=== PATIENT | female | born 1945 | race Caucasian/White ===

== ENCOUNTER 2023-05-25 22:53 | Inpatient (IN) | payer OTHER ==
[~2023-05-25] VITALS: Ht 160 cm; Wt 77.6 kg
[2023-05-25 23:44] VITALS: BP 146/84
[2023-05-26] VITALS (7 sets, daily range): BP systolic 130–153; BP diastolic 66–96
[2023-05-26] MEDS ORDERED: ONDANSETRON HCL 4 MG/2 ML VIAL IV PRN (01:15)
[2023-05-26] MEDS ORDERED: PANTOPRAZOLE 40 MG/10 ML VIAL INJ IV ONE (01:15)
[2023-05-26 01:55] LABS: Basophils # (auto) 0 10 ^3/uL (0-0.2); Basophils % (auto) 0.2 % (0.0-2.0); Eosinophils # (auto) 0 10 ^3/uL (0-0.8); Eosinophils % (auto) 0.1 % (0.0-7.0); Hematocrit 35.9 % (36.0-46.0); Hemoglobin 11.9 g/dL (12.2-16.2); Lymphocytes # (auto) 1.5 10 ^3/uL (0.4-5.4); Lymphocytes % (auto) 12.1 % (10.0-50.0); Mean Corpuscular Hemoglobin 31.6 pg (28.0-32.0); Mean Corpuscular Hgb Conc. 33.1 g/dL (32.0-36.0); Mean Corpuscular Volume 95.7 fL (80.0-100.0); Monocytes # (auto) 2.1 10 ^3/uL (0-1.3); Monocytes % (auto) 17.2 % (0.0-12.0); Neutrophils # (auto) 8.7 10 ^3/uL (1.6-8.6); Neutrophils % (auto) 70.4 % (37.0-80.0); Red Blood Cells 3.75 10^6/uL (4.0-5.20); Red Cell Distribution Width 13.1 % (11.8-14.3); White Blood Cell 12.3 10^3/uL (4.4-10.8)
[2023-05-26 02:10] LABS: INR 1.13 (0.9-1.15)
[2023-05-26 02:15] LABS: Albumin 2.8 g/dL (3.4-5.0); BUN/Creatinine Ratio 7.3 (10.0-20.0); Calcium 8.5 mg/dL (8.5-10.1); Potassium 4.3 mmol/L (3.5-5.1)
[2023-05-26 02:18] LABS: Total Protein 6.5 g/dL (6.4-8.2)
[2023-05-26] MEDS ORDERED: PANT40TA2 PO (08:23)
[2023-05-26] MEDS ORDERED: ONDA-155 PO (08:23)
[2023-05-26] MEDS ORDERED: ESCI1TAB37 PO (08:35)
[2023-05-26] MEDS ORDERED: ALPR1TAB7 PO (08:35)
[2023-05-26] MEDS ORDERED: BENZ100C97 PO (08:35)
[2023-05-26] MEDS ORDERED: GLIP10TA9 PO (08:35)
[2023-05-26] MEDS ORDERED: ATEN50TA PO (08:35)
[2023-05-26] MEDS ORDERED: UBRO100T2 PO (08:35)
[2023-05-26] MEDS ORDERED: TRAM50TA2 PO (08:35)
[2023-05-26] MEDS ORDERED: LOVA40TA72 PO (08:35)
[2023-05-26] MEDS ORDERED: LISI10TA34 PO (08:35)
[2023-05-26] MEDS ORDERED: DIPH2.5T73 PO (08:35)
[2023-05-26] MEDS ORDERED: PIO30T PO (08:35)
[2023-05-26] MEDS ORDERED: OME20GT PO (08:35)
[2023-05-26] MEDS ORDERED: HYDR-4902 PO (08:35)
[2023-05-26] MEDS ORDERED: DICY10CA12 PO (08:35)
[2023-05-26] MEDS ORDERED: MORPHINE SULFATE INJ 2 MG/ml SYRG IV PRN (09:00)
[2023-05-26] MEDS ORDERED: PANTOPRAZOLE 40 MG/10 ML VIAL INJ IV SCH (10:00)
[2023-05-26] MEDS ORDERED: DEXTROSE (50%) 50ML SYRG IV PRN (12:30)
[2023-05-26] MEDS: HYDROmorphone HCL 2 MG/ML VL/or syr IV PRN ×3 (13:04→22:13)
[2023-05-26] MEDS: PROMETHAZINE HCL 25 MG/ML 1ML IV PRN (13:05)
[2023-05-26] MEDS: SODIUM CHLORIDE 0.9% 1,000 ML IV SCH (15:33)
[2023-05-26] MEDS: ALPRAZolam 0.25 MG TAB PO PRN (17:20)
[2023-05-26] MEDS: ACCU-CHEK COMFORT CURVE STRIP VI SCH ×2 (17:44→22:14)
[2023-05-26] MEDS: InsuLIN REG 1unit/0.01ml Soln (100units/ml) SC SCH ×2 (17:45→22:00)
[2023-05-26] MEDS: IPRATROPIUM BROM 0.5 MG/2.5ML INH SOL NEB SCH ×2 (18:38→23:34)
[2023-05-26] MEDS: ALBUTEROL SULF 2.5 MG/0.5ML(0.5%) NEB SOLN NEB SCH ×2 (18:38→23:34)
[2023-05-26] MEDS: PANTOPRAZOLE 40 MG/10 ML VIAL INJ IV SCH (22:07)
[2023-05-26] MEDS: HYDROcodone-ACET 7.5/325MG TAB PO PRN (23:57)
[2023-05-27] MEDS: PROMETHAZINE HCL 25 MG/ML 1ML IV PRN (00:03)
[2023-05-27] MEDS: SODIUM CHLORIDE 0.9% 1,000 ML IV SCH ×2 (04:11→14:55)
[2023-05-27 05:00] VITALS: BP 116/70
[2023-05-27] MEDS: InsuLIN REG 1unit/0.01ml Soln (100units/ml) SC SCH ×4 (05:58→22:00)
[2023-05-27] MEDS: ACCU-CHEK COMFORT CURVE STRIP VI SCH ×4 (05:58→22:34)
[2023-05-27] MEDS: ALBUTEROL SULF 2.5 MG/0.5ML(0.5%) NEB SOLN NEB SCH ×3 (06:21→18:51)
[2023-05-27] MEDS: IPRATROPIUM BROM 0.5 MG/2.5ML INH SOL NEB SCH ×3 (06:22→18:51)
[2023-05-27 06:39] LABS: Hematocrit 33.4 % (36.0-46.0); Hemoglobin 11.1 g/dL (12.2-16.2); Mean Corpuscular Hemoglobin 31.8 pg (28.0-32.0); Mean Corpuscular Hgb Conc. 33.3 g/dL (32.0-36.0); Mean Corpuscular Volume 95.7 fL (80.0-100.0); Red Blood Cells 3.49 10^6/uL (4.0-5.20); Red Cell Distribution Width 12.9 % (11.8-14.3); White Blood Cell 11.5 10^3/uL (4.4-10.8)
[2023-05-27 06:45] LABS: Potassium 3.8 mmol/L (3.5-5.1)
[2023-05-27 06:50] LABS: Basophils % (manual) 0 (0.0-2.0); Blast Cells 0; Metamyelocytes % 0; Myelocytes % 0; Promyelocytes % 0; Reactive Lymphocytes 0
[2023-05-27 07:00] LABS: Albumin 2.7 g/dL (3.4-5.0); BUN/Creatinine Ratio 11.1 (10.0-20.0); Bilirubin, Total 1.3 mg/dL (0.2-1.0); Calcium 8.4 mg/dL (8.5-10.1); Total Protein 6.3 g/dL (6.4-8.2)
[2023-05-27] MEDS: HYDROmorphone HCL 2 MG/ML VL/or syr IV PRN ×3 (07:00→19:35)
[2023-05-27 08:23] LABS: Band Neutrophils % (manual) 3; Eosinophils % (manual) 1 (0-7); Lymphocytes % (manual) 15 (10.0-50.0); Monocytes % (manual) 6 (0-12)
[2023-05-27 09:00] VITALS: BP 148/85
[2023-05-27] MEDS: PANTOPRAZOLE 40 MG/10 ML VIAL INJ IV SCH ×2 (10:16→22:32)
[2023-05-27] MEDS: HYDROcodone-ACET 7.5/325MG TAB PO PRN ×2 (10:17→22:33)
[2023-05-27 13:00] VITALS: BP 147/88
[2023-05-27 16:56] VITALS: BP 139/82
[2023-05-27] MEDS ORDERED: LIDOCAINE VISCOUS 2% 15ML UD ONE (17:07)
[2023-05-27] MEDS: diphenhdrAMINE HCL 50 MG/1 ML VL ONE ×2 (17:17→17:19)
[2023-05-27] MEDS: fentaNYL CITRATE 100 MCG/2 ML VL ONE ×3 (17:17→17:23)
[2023-05-27] MEDS: MIDAZOLAM HCL 2MG/2ML 2ml VIAL (1mg/ml) ONE ×3 (17:17→17:23)
[2023-05-27] MEDS: SUCRALFATE 1 GM/10 ML ORAL SUSP PO SCH (22:32)
[2023-05-27] MEDS: METOCLOPRAMIDE HCL 5MG/ml INJ 2ml VIAL IV SCH (22:32)
[2023-05-28] VITALS (7 sets, daily range): BP systolic 136–169; BP diastolic 67–111
[2023-05-28] MEDS: ALBUTEROL SULF 2.5 MG/0.5ML(0.5%) NEB SOLN NEB SCH ×5 (00:29→18:49)
[2023-05-28] MEDS: IPRATROPIUM BROM 0.5 MG/2.5ML INH SOL NEB SCH ×5 (00:29→18:49)
[2023-05-28] MEDS: SODIUM CHLORIDE 0.9% 1,000 ML IV SCH (04:30)
[2023-05-28] MEDS: InsuLIN REG 1unit/0.01ml Soln (100units/ml) SC SCH ×5 (06:14→22:27)
[2023-05-28 06:16] LABS: Potassium 3.8 mmol/L (3.5-5.1)
[2023-05-28] MEDS: ACCU-CHEK COMFORT CURVE STRIP VI SCH ×4 (06:19→22:20)
[2023-05-28] MEDS: SUCRALFATE 1 GM/10 ML ORAL SUSP PO SCH ×4 (06:20→22:14)
[2023-05-28] MEDS: METOCLOPRAMIDE HCL 5MG/ml INJ 2ml VIAL IV SCH ×3 (06:20→22:12)
[2023-05-28 06:27] LABS: Albumin 2.8 g/dL (3.4-5.0); BUN/Creatinine Ratio 11.1 (10.0-20.0); Calcium 8.5 mg/dL (8.5-10.1)
[2023-05-28] MEDS: HYDROmorphone HCL 2 MG/ML VL/or syr IV PRN ×2 (06:34→12:11)
[2023-05-28 06:37] LABS: Bilirubin, Total 1.1 mg/dL (0.2-1.0); Total Protein 6.6 g/dL (6.4-8.2)
[2023-05-28 06:55] LABS: Basophils # (auto) 0 10 ^3/uL (0-0.2); Basophils % (auto) 0.3 % (0.0-2.0); Eosinophils # (auto) 0 10 ^3/uL (0-0.8); Eosinophils % (auto) 0.2 % (0.0-7.0); Hematocrit 34.9 % (36.0-46.0); Hemoglobin 11.8 g/dL (12.2-16.2); Lymphocytes # (auto) 1.1 10 ^3/uL (0.4-5.4); Lymphocytes % (auto) 9.9 % (10.0-50.0); Mean Corpuscular Hemoglobin 32.5 pg (28.0-32.0); Mean Corpuscular Hgb Conc. 33.8 g/dL (32.0-36.0); Mean Corpuscular Volume 96.2 fL (80.0-100.0); Monocytes # (auto) 1.3 10 ^3/uL (0-1.3); Monocytes % (auto) 12.3 % (0.0-12.0); Neutrophils # (auto) 8.4 10 ^3/uL (1.6-8.6); Neutrophils % (auto) 77.3 % (37.0-80.0); Nucleated Red Blood Cells % 0.1 %; Red Blood Cells 3.63 10^6/uL (4.0-5.20); Red Cell Distribution Width 12.7 % (11.8-14.3); White Blood Cell 10.9 10^3/uL (4.4-10.8)
[2023-05-28] MEDS: ALPRAZolam 0.25 MG TAB PO PRN (08:23)
[2023-05-28] MEDS: PANTOPRAZOLE 40 MG/10 ML VIAL INJ IV SCH ×2 (08:24→22:12)
[2023-05-28 09:37] LABS: Urine Bacteria FEW /hpf (None Seen); Urine Blood Negative /uL (Negative); Urine Specific Gravity 1.011 (1.001-1.035); Urine WBC 1 /hpf (0 - 5)
[2023-05-28] MEDS ORDERED: ATENOLOL 50 MG TAB PO ONE (14:30)
[2023-05-28] MEDS: HYDROcodone-ACET 7.5/325MG TAB PO PRN ×2 (15:18→22:12)
[2023-05-28] MEDS: ATENOLOL 50 MG TAB PO SCH (22:13)
[2023-05-29] MEDS: IPRATROPIUM BROM 0.5 MG/2.5ML INH SOL NEB SCH ×3 (00:33→12:51)
[2023-05-29] MEDS: ALBUTEROL SULF 2.5 MG/0.5ML(0.5%) NEB SOLN NEB SCH ×3 (00:34→12:52)
[2023-05-29] MEDS: HYDROcodone-ACET 7.5/325MG TAB PO PRN ×2 (02:52→10:36)
[2023-05-29 04:29] VITALS: BP 150/91
[2023-05-29] MEDS: METOCLOPRAMIDE HCL 5MG/ml INJ 2ml VIAL IV SCH ×2 (05:41→16:15)
[2023-05-29] MEDS: ACCU-CHEK COMFORT CURVE STRIP VI SCH ×3 (05:41→17:00)
[2023-05-29] MEDS: InsuLIN REG 1unit/0.01ml Soln (100units/ml) SC SCH ×3 (05:50→18:38)
[2023-05-29] MEDS: SUCRALFATE 1 GM/10 ML ORAL SUSP PO SCH ×3 (06:51→17:00)
[2023-05-29 07:12] LABS: BUN/Creatinine Ratio 11.3 (10.0-20.0); Calcium 8.5 mg/dL (8.5-10.1); Potassium 3.8 mmol/L (3.5-5.1)
[2023-05-29 08:42] VITALS: BP 146/87
[2023-05-29] MEDS: ATENOLOL 50 MG TAB PO SCH (10:32)
[2023-05-29] MEDS: PANTOPRAZOLE 40 MG/10 ML VIAL INJ IV SCH (10:32)
[2023-05-29] MEDS: PROMETHAZINE HCL 25 MG/ML 1ML IV PRN (10:42)
[2023-05-29 10:59] VITALS: BP 146/87
[2023-05-29] MEDS ORDERED: SUCR1SUS26 PO (11:28)
[2023-05-29] MEDS ORDERED: PANT40TA2 PO (11:28)
[2023-05-29 13:00] VITALS: BP 164/99
[2023-05-29] MEDS ORDERED: cloNIDine HCL 0.1 MG TAB PO ONE (15:15)
[2023-05-29] MEDS ORDERED: amLODIPine BESYLATE 5 MG TAB PO ONE (15:15)
[2023-05-29 15:40] VITALS: BP 146/87
== END 2023-05-29 18:55 | disposition home or self-care (01) | DRG 377 ==
LOC: WEST WING 22:53
PROVIDERS: ADMIT Nurse Practitioner; ATTEND Internal Medicine
PROC: 0DB68ZX Excision of Stomach, Via Natural or Artificial Opening Endoscopic, Diagnostic (ICD-10-PCS; 2023-05-27)
PROC: 0DB38ZX Excision of Lower Esophagus, Via Natural or Artificial Opening Endoscopic, Diagnostic (ICD-10-PCS; 2023-05-27)
PROC: 0DB98ZX Excision of Duodenum, Via Natural or Artificial Opening Endoscopic, Diagnostic (ICD-10-PCS; principal; 2023-05-27 17:11)
DX: K29.71 Gastritis, unspecified, with bleeding (principal); E43 Unspecified severe protein-calorie malnutrition; J96.21 Acute and chronic respiratory failure with hypoxia; N13.30 Unspecified hydronephrosis; J90 Pleural effusion, not elsewhere classified; C78.00 Secondary malignant neoplasm of unspecified lung; N17.9 Acute kidney failure, unspecified; C50.911 Malignant neoplasm of unspecified site of right female breast; E11.43 Type 2 diabetes mellitus with diabetic autonomic (poly)neuropathy; E78.5 Hyperlipidemia, unspecified; K21.9 Gastro-esophageal reflux disease without esophagitis; K31.84 Gastroparesis; K44.9 Diaphragmatic hernia without obstruction or gangrene; I12.9 Hypertensive chronic kidney disease with stage 1 through stage 4 chronic kidney disease, or unspecified chronic kidney disease; N18.31 Chronic kidney disease, stage 3a; E11.22 Type 2 diabetes mellitus with diabetic chronic kidney disease; Z79.811 Long term (current) use of aromatase inhibitors; Z85.118 Personal history of other malignant neoplasm of bronchus and lung; Z85.3 Personal history of malignant neoplasm of breast; Z87.11 Personal history of peptic ulcer disease; Z87.891 Personal history of nicotine dependence; Z90.13 Acquired absence of bilateral breasts and nipples; Z92.21 Personal history of antineoplastic chemotherapy; Z79.899 Other long term (current) drug therapy; Z68.30 Body mass index [BMI] 30.0-30.9, adult
CPT/HCPCS: 36415; 71045; 74181; 76775; 80048; 80053; 80061; 81001; 82043; 82306; 82570; 82962; 83036; 83935; 84156; 84300; 84443; 85007; 85025; 85027; 85610; 85730; 86850; 86900; 86901; 93306; 94640; 97163; C9113; G0378; J1815; J2250; J2405